=== PATIENT | female | born 1955 | race African-American/Black ===

== ENCOUNTER 2016-07-19 14:39 | Emergency (ER) | payer OTHER ==
[~2016-07-19] VITALS: Ht 175.3 cm; Wt 90.7 kg
[2016-07-19 15:01] VITALS: BP 146/81
[2016-07-19] MEDS ORDERED: Ketorolac 30mg Inj IM ONE (15:30)
[2016-07-19] MEDS ORDERED: Methocarbamol 750mg tab ORAL ONE (15:30)
[2016-07-19] MEDS ORDERED: IBUPROFEN600 MG ORAL (16:45)
[2016-07-19] MEDS ORDERED: ROBAXIN-750750 MG PO (16:45)
[2016-07-19] MEDS ORDERED: CLARITIN-D 241 EACH PO (16:45)
[2016-07-19 17:25] VITALS: BP 143/84
--- NOTE | 2016-07-20 21:42 | Emergency Room Report ---
History of Present Illness General Chief Complaint: Lower Back Pain or Injury Source: Patient Present Illness HPI The patient is a [id number] female presenting for back pain, watery eyes, cough, and sneezing for the past 2 weeks. The patient states that she was lifting an object at work with the right hand and noticed a sharp pain to the right mid back. The pain has persisted and is described now as an 8/10 dull ache. Pain worse with arm movement and touch. She denies previous injury to this area. Pain does not radiate. She denies any other symptoms including N, V , F, chills, SOB, CP, rash, numbness/tingling Allergies: Coded Allergies: No Known Allergies (Unverified , 07/19/16) Patient History Past Medical History: see triage record Pertinent Family History: none Reviewed Nursing Documentation: PMH: Agreed, PSxH: Agreed Nursing Documentation-PMH Past Medical History: No Stated History Review of Systems All Other Systems: negative except mentioned in HPI Physical Exam Vital Signs Date Time Temp Pulse Resp B/P Pulse Ox O2 Delivery O2 Flow Rate FiO2 07/19/16 14:48 98.2 82 20 142/84 100 Room Air Sp02 EP Interpretation: reviewed, normal General Appearance: no apparent distress, alert, GCS 15, non-toxic Head: normocephalic, atraumatic Eyes: bilateral eye PERRL, bilateral eye normal inspection ENT: hearing grossly normal, normal pharynx, normal voice, TMs + canals normal , uvula midline, nasal congestion Neck: full range of motion, supple/symm/no masses Respiratory: chest non-tender, lungs clear, normal breath sounds, speaking full sentences Cardiovascular #1: regular rate, rhythm, no edema Musculoskeletal: tender - TTP over the R thoracic paraspinous muscles Neurologic: alert, oriented x3, responsive, motor strength/tone normal, sensory intact, speech normal Psychiatric: judgement/insight normal, memory normal, mood/affect normal, no suicidal/homicidal ideation Skin: normal color, no rash, warm/dry, well hydrated Lymphatic: no adenopathy Medical Decision Making PA Attestation Dr. Reyes is my supervising physician. Patient management was discussed with my supervising physician Diagnostic Impression: Primary Impression: Muscle strain Additional Impression: Environmental allergies ER Course The patient is a [id number] female presenting for back pain, watery eyes, cough, and sneezing Ddx considered include but not limited to lumbar strain, degenerative disease, chronic pain, narcotic dependency. DDx considered but not limited to pharyngitis, sinusitis, conjunctivitis, allergies PE: afebrile. NAD No TTP over maxillary or frontal sinuses. Lungs CTA bilat. No wheezing. No accessory muscle use. Heart: RRR, no abnormal heart sounds Ears: external auditory canal clear. Non erythematous. Bilat TM intact. Cone of light present bilat. No bulging of TM. No serous fluid seen. + nasal D/C no cervical lymphad No tonsillar exudate. Uvula midline.Oropharynx non erythematous There is tenderness to palpation over the right thoracic paraspinous muscles. No midline tenderness. Full active range of motion. The patient is given Toradol and Robaxin and is feeling better. She'll be discharged home with prescription for claritin, Motrin, Robaxin, and will followup with workers compensation as well as PMD. ER precautions given Last Vital Signs Date Time Temp Pulse Resp B/P Pulse Ox O2 Delivery O2 Flow Rate FiO2 07/19/16 17:40 98.2 96 20 143/84 100 Room Air Status: improved Disposition: HOME, SELF-CARE Condition: Improved Scripts Loratadine/Pseudoephedrine (CLARITIN-D 24 HOUR TABLET) 1 Each Tab.er.24h 1 TAB PO DAILY, #20 TAB Prov: TERZIAN,SHINE P.A. 07/19/16 Methocarbamol* (ROBAXIN-750*) 750 Mg Tablet 750 MG PO TID, #21 TAB 0 Refills Prov: TERZIAN,SHINE P.A. 07/19/16 Ibuprofen* (MOTRIN*) 600 Mg Tablet 600 MG ORAL Q6H Y for For Pain, #30 TAB Prov: TERZIAN,SHINE P.A. 07/19/16 Referrals: NOT CHOSEN IPA/MD,REFERRING (PCP) Patient Instructions: Muscle Strain, Allergies Additional Instructions: I discussed my findings with the patient. All questions and concerns have been answered. Treatment and medication compliance have been addressed. I advised the patient that they need to follow up with PMD in 3-5 days. Return to ED if symptoms worsen, new symptoms arise, or if needed for any reason. Patient verbalized understanding of discharge instructions. The patient was informed she is to followup with workers compensation SHINE OLMEDO July 20, 2016 21:42
== END 2016-07-19 17:42 | disposition home or self-care (01) ==
LOC: EMR 15:21
DX: S39.012A Strain of muscle, fascia and tendon of lower back, initial encounter (principal); X50.0XXA Overexertion from strenuous movement or load, initial encounter; Y93.9 Activity, unspecified; Y99.9 Unspecified external cause status; T78.40XA Allergy, unspecified, initial encounter; X58.XXXA Exposure to other specified factors, initial encounter; R05 Cough; M54.5 Low back pain; R06.7 Sneezing
CPT/HCPCS: 96372; 99284; J1885

== ENCOUNTER 2016-08-28 18:59 | Emergency (ER) | payer OTHER ==
[~2016-08-28] VITALS: Ht 175.3 cm; Wt 82.6 kg
[~2016-08-28 18:59] MED LIST: CLARITIN-D 241 EACH PO; IBUPROFEN600 MG ORAL; ROBAXIN-750750 MG PO
[2016-08-28] MEDS ORDERED: Norco 5mg/325mg tab ORAL ONE (20:00)
--- NOTE | 2016-08-28 20:07 | Emergency Room Report ---
History of Present Illness General Chief Complaint: Back Pain-No Injury Source: Patient Present Illness HPI 60 Female presents to the ED c/o right sided upper back pain x over 3 months intermittent, that has progressed over the past two days. denies fevers, chills , rashes, or new injury /fall since what pt. believes was the initial onset of symptoms several months ago at work lifting heavy objects. denies radiation of the pain, denies dysuria, hematuria, rashes or abdominal pain. pt. states she has been managing her pain for some time with OTC Advil. denies hx of neoplastic disease. Denies numbness tingling or loss of sensation or gross motor movements of the extremities, incontinence of bowel or bladder. Denies CP , Palpitations, LOC, AMS, dizziness, Changes in Vision, Sensation, paresthesias , or a sudden severe headache. Allergies: Coded Allergies: No Known Allergies (Unverified , 07/19/16) Patient History Past Medical History: see triage record Past Surgical History: none Pertinent Family History: none Now: No Immunizations: UTD Reviewed Nursing Documentation: PMH: Agreed, PSxH: Agreed Nursing Documentation-PMH Past Medical History: No Stated History Review of Systems All Other Systems: negative except mentioned in HPI Physical Exam Vital Signs Date Time Temp Pulse Resp B/P Pulse Ox O2 Delivery O2 Flow Rate FiO2 08/28/16 19:11 98.2 94 16 139/89 98 Room Air Sp02 EP Interpretation: reviewed, normal General Appearance: no apparent distress, alert, GCS 15, non-toxic Head: normocephalic, atraumatic Eyes: bilateral eye PERRL, bilateral eye normal inspection ENT: hearing grossly normal, normal pharynx, no angioedema, normal voice Neck: full range of motion, supple/symm/no masses Respiratory: chest non-tender, lungs clear, normal breath sounds, speaking full sentences Cardiovascular #1: regular rate, rhythm, no edema Genitourinary: normal inspection, no CVA tenderness Musculoskeletal: back normal, normal range of motion, tender - right thoracic paraspinal ttp, with mild midline ttp, no left sided TTP, no obvious deformity, no bruises, rashes, or increased temperature or erythema noted. Neurologic: alert, oriented x3, responsive, motor strength/tone normal, sensory intact, speech normal, other - no LE weakness, DTR's symmetric in the knee, no evidence to suggest incontinence. Psychiatric: judgement/insight normal, memory normal, mood/affect normal Skin: normal color, no rash, warm/dry, well hydrated, other - no erythema, bruises, increased temperature to palpation or rashes noted. Medical Decision Making PA Attestation Dr. Espino is my supervising Physician whom patient management has been discussed with. Diagnostic Impression: Primary Impression: Back pain Qualified Codes: M54.6 - Pain in thoracic spine; G89.29 - Other chronic pain ER Course 60 Female presents to the ED c/o right sided upper back pain x over 3 months intermittent, that has progressed over the past two days. denies fevers, chills , rashes, or new injury /fall since what pt. believes was the initial onset of symptoms several months ago at work lifting heavy objects. denies radiation of the pain, denies dysuria, hematuria, rashes or abdominal pain. pt. states she has been managing her pain for some time with OTC Advil. denies hx of neoplastic disease. Denies numbness tingling or loss of sensation or gross motor movements of the extremities, incontinence of bowel or bladder. Denies CP , Palpitations, LOC, AMS, dizziness, Changes in Vision, Sensation, paresthesias , or a sudden severe headache. Ddx considered but are not limited to Fracture, dislocation, contusion, Sprain/ Strain/Spasm. Vital signs: are WNL, pt. is afebrile H&PE are most consistent with musculoskeletal injury will perform imaging to r/ o fractures/dislocations. ORDERS: - X-ray Thoracic Spine 2 views - negative for fx, Dislocation, or significant soft tissue injury, suspicious for possible compression fx of T6, no obvious deformities, degenerative changes throughout- per preliminary read in ED by Dr. Espino - interpretation is scribed by PA. ED INTERVENTIONS: - [place] PO -D/w pt. to follow up with PCP, pt. states she just was put back on to [facility] and did not like her previous PCP, d/w pt that I will provide her a list of free /reduced cost primary clinics in the area. DISCHARGE: At this time pt. is stable for d/c to home. Will provide printed patient care instructions, and any necessary prescriptions. Care plan and follow up instructions have been discussed with the patient prior to discharge. Last Vital Signs Date Time Temp Pulse Resp B/P Pulse Ox O2 Delivery O2 Flow Rate FiO2 08/28/16 19:11 98.2 94 16 139/89 98 Room Air Disposition: HOME, SELF-CARE Condition: Stable Scripts Ibuprofen* (MOTRIN*) 600 Mg Tablet 600 MG ORAL THREE TIMES A DAY, #20 TAB 0 Refills Prov: Zofia Shi 08/28/16 Cyclobenzaprine Hcl* (FLEXERIL*) 10 Mg Tablet 10 MG ORAL THREE TIMES A DAY, #21 TAB Prov: Zofia Shi 08/28/16 Patient Instructions: Back Pain, Adult Additional Instructions: Take medications as directed. Follow up with PCP in 3-5 days Return sooner to ED if new symptoms occur, or current symptoms become worse. Do not drink alcohol, drive, or operate heavy machinery while taking [ ] as this may cause drowsiness. - Please note that this Emergency Department Report was dictated using [email or web address] technology software, occasionally this can lead to erroneous entry secondary to interpretation by the dictation equipment. Zofia Shi Aug 28, 2016 20:07
[2016-08-28] MEDS ORDERED: IBUPROFEN600 MG ORAL (20:29)
[2016-08-28] MEDS ORDERED: CYCLOBENZAPRINE10 MG ORAL (20:29)
[2016-08-28 20:44] VITALS: BP 139/89
--- NOTE | 2016-08-29 15:17 | Diagnostic Imaging Report ---
Indication: Back pain Findings: 2 views of the thoracic spine were obtained. There are mild endplate spurs noted throughout the thoracic spine. There is no fracture or malalignment. The bones appears osteopenic. Impression: Mild spondylosis
== END 2016-08-28 20:50 | disposition home or self-care (01) ==
LOC: EMR 19:50
DX: M54.6 Pain in thoracic spine (principal); G89.29 Other chronic pain
CPT/HCPCS: 72070; 99284